=== PATIENT | female | born 1945 | race Caucasian/White ===

== ENCOUNTER → 2025-04-01 | Outpatient (CLI) | payer MEDICARE ==
--- NOTE | 2025-04-02 04:50 | HMCIMG ---
EXAM: CR Left Knee, 3 views. CLINICAL HISTORY: Left knee pain. COMPARISON: None provided. FINDINGS: No acute fracture or aggressive appearing osseous lesion. 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 There is no joint effusion appreciated. Small distal quadriceps enthesopathy. IMPRESSION: No acute bony abnormality is evident. Mild tricompartmental osteoarthritis. /[place]
== END | disposition home or self-care (01) ==
LOC: RAH 12:16
PROVIDERS: ATTEND Internal Medicine
DX: M17.12 Unilateral primary osteoarthritis, left knee (principal); M76.892 Other specified enthesopathies of left lower limb, excluding foot; M25.562 Pain in left knee
CPT/HCPCS: 73562